=== PATIENT | male | born 1945 | race Caucasian/White ===

== ENCOUNTER → 2016-10-04 | Outpatient (CLI) | payer OTHER ==
[~2016-10-04] VITALS: Ht 177.8 cm; Wt 68.0 kg
[~2016-10-04] MED LIST: ASPIR 8181 MG PO; AZILECT1 MG PO; BENAZEPRIL HCL40 MG PO; BUTRANS1 EAC1 TD; CARAFATE1 GM PO; CARVEDILOL12.5 MG PO; EXELON1 EAC1 TD; FENTANYL PA12 MCG/HR TP; FISH OIL 1,001000 M2 PO; FLOMAX0.4 MG PO; LEVOTHYROXIN0.112 M1 PO; METFORMIN HCL500 MG PO; NABUMETONE 500500 M1 PO; NEURONTIN 300300 M1 PO; PANTOPRAZOLE SO40 M1 PO; PERCOCET PO; PRAVACHOL40 MG PO; VITAMIN B-12500 MCG PO; VITAMIN D1000 UNI1 PO; VITAMIN E400 UNIT PO; ZOLOFT 50 MG TA50 M1 PO
--- NOTE | ~2016-10-04 | HPC ---
[facility] [address] [place] [address] PAIN MANAGEMENT CONSULTATION Name: RIAN MATUTE Room #: REG MATTHEW Dutta.#: [id number] Admission: 10/04/16 Attend Phys: Dominic Teixeira DO Discharge: Date of : 43 Report #: [id number] THIS REPORT FOR: //name// CC: Dominic Sellers DATE OF SERVICE: 10/04/2016 REFERRING PHYSICIAN: Shady Rey MD CHIEF COMPLAINT: Right neck pain and right shoulder pain. HISTORY OF PRESENT ILLNESS: As you know, the patient is a 71-year-old male referred to our service by his neurosurgery team for evaluation for suspected cervical spinal stenosis. The patient reports pain today level of 8/10, states his pain is periodic, intermittent, transient, but is quite frequent in its presentation, states the pain is burning, shooting, sharp and stabbing, places current pain score at 8/10, daily average at 8-9/10, worst pain has been is 10/10. The patient states heavy lifting, walking, turning his head exacerbate symptoms, rest and inactivity improves the pain. The patient states he has been with another pain service at the [facility] when requests for cervical nerve root blocks were requested, he was advised this is too dangerous of a process and that very few physicians offer these injections due to the complication rate. He has undergone trigger point injections RFA of the C4-6 level on the right side without improvement. Cervical epidural injections were ineffective, apparently they "had difficulty getting the needle in position." The patient was then referred to our service by neurosurgery for evaluation for cervical radicular symptoms. PAST MEDICAL HISTORY: 1. Diabetes mellitus type 2. 2. Hypertension. 3. Coronary artery disease. 4. Hypothyroidism. 5. Gastroesophageal reflux disease. 6. Emotional problems. 7. Degenerative joint disease. 8. Osteoarthritis. 9. Peptic ulcer disease. PAST SURGICAL HISTORY: 1. Umbilical herniorrhaphy. 2. Left inguinal herniorrhaphy. 3. Coronary artery bypass grafting with PFO closure. [facility] [address] [place] [address] PAIN MANAGEMENT CONSULTATION Name: RIAN MATUTE Room #: REG MATTHEW Dutta.#: [id number] Admission: 10/04/16 Attend Phys: Dominic Teixeira DO Discharge: Date of : 43 Report #: [id number] 4. Permanent pacemaker implantation. 5. Lumbar laminectomy. 6. Cervical spinal surgery. 7. Right shoulder surgery. 8. Left shoulder surgery. SOCIAL HISTORY: The patient denies tobacco, IV or illicit drug use, admits to one alcoholic beverage per week. He is retired. He is not working, not receiving workmen's compensation nor is he trying to obtain disability benefits. Not in litigation in regards to pain. REVIEW OF SYSTEMS: Positive for night sweats, fatigue, and weakness, frequent and recurrent headaches, wearing corrective eyewear, changes in bowel movements with constipation, abdominal pain, frequent urination, nocturia, incontinence and dribbling to urine, lightheadedness and dizziness, memory loss with confusion, nervousness, depression, thyroid disease, non-insulin dependent diabetes, heat and cold intolerance, slow to heal after cuts, bleeding and bruising tendencies, generalized osteoarthritis. All other review of systems negative per 12-point review of systems other than those listed in history of present illness. PAIN IMPACT SCORE: 56/70 indicating severe interference of daily activities secondary to pain. ALLERGIES: SULFA. CURRENT MEDICATIONS: Oxycodone 5/325 one tab 3 times a day, omega-3 fish oil 1 tab per day, vitamin E 400 units per day, cholecalciferol 1000 units per day, cyanocobalamin 500 mcg per day, aspirin 81 mg per day, Carafate 1 gram 3 times a day, sertraline 50 mg once a day, tamsulosin 0.4 mg once a day, pravastatin 40 mg per day, pantoprazole 40 mg per day, metformin 500 mg once a day, levothyroxine 112 mcg per day, gabapentin 300 mg 3 times a day, Exelon 1 patch applied per day, carvedilol 12.5 mg twice a day, benazepril 40 mg per day, and Azilect 1 mg per day. 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 PHYSICAL EXAMINATION: VITAL SIGNS: Blood pressure 158/81, pulse is 72, respiratory rate 14 and unlabored, the patient is 99% on room air, height 5 feet 10 inches tall, weight 150 pounds, and BMI calculated 21.5. GENERAL: Thin 71-year-old male appears his stated age. He is placing current pain score at approximately 8/10. [address] [address] PAIN MANAGEMENT CONSULTATION Name: RIAN MATUTE Room #: REG MATTHEW Bentley#: [id number] Admission: 10/04/16 Attend Phys: Dominic Teixeira DO Discharge: Date of : 43 Report #: [id number] HEENT: Normocephalic, atraumatic. Pupils are equal, round, and reactive to light. Extraocular muscles are intact. Sclerae are nonicteric without injection. NEUROLOGIC: Cranial nerves 2-12 are grossly intact. Speech is fluent. The patient deemed an excellent historian. LUNGS: Clear. No wheezing, rhonchi, or rales. CARDIOVASCULAR: Regular. No appreciable gallop or rub. ABDOMEN: Soft, nontender, nondistended, normoactive bowel sounds. EXTREMITIES: Show no clubbing, no cyanosis, and no edema. MUSCULOSKELETAL: Severe limited range of motion of the cervical spine. Pain is elicited with maneuvers provocation including forward flexion, lateral flexion, rotation and extension. There is noted crepitus with each movement. Spurling's test is negative. Upper extremity strength appears equal and symmetrical 5/5, intact to light touch from C5 through T1 dermatomes. Deep tendon reflexes are diminished, but symmetrical. Muscle bulk and tone equal and symmetrical. ASSESSMENT: 1. Chronic cervical radiculopathy. 2. Cervical spinal stenosis. 3. Severe facet arthropathy of the cervical spine. 4. Chronic intractable pain. PLAN: 1. The patient has been referred to our service with requests to undergo blocks at C4-C5 and C5-C6 to address cervical nerve roots. I advised the patient at this time that these are diagnostic procedures only, they come with a very high risk of injection into the vertebral artery, which is very close in proximity anatomically to the nerve roots themselves. When we discussed this with the patient, he chose not to continue with this option of treatment. The patient decided that at this point he would rather trial medication therapies than to undergo a diagnostic block that may cause severe and irreparable damage as a possible side effect. The patient and I did discuss that there are very few physicians remaining that would attempt these type of blocks given the proximity of the vertebral artery to the foramen in the cervical region. I would recommend that the patient consider other options as well as this is an extremely precarious area to place a needle and is typically not provided for diagnostic purposes. We discussed this with the patient today and he is in agreement. He does not wish to trial this diagnostic block. 2. I did recommend to the patient the possibility of making some changes in medication therapy, given the progression of his ankylosing in the cervical spine, I believe the treatment options would have to include medication therapy and possible surgical fusion. He will need to discuss fusion with his surgeons, but medication management can be initiated through our services. We will begin the patient on the following medications to help with pain control. 3. The patient will discontinue all nonsteroidal anti-inflammatories, in place we will use nabumetone 500 mg dose 1 tab p.o. t.i.d., I have given the patient [address] [address] PAIN MANAGEMENT CONSULTATION Name: RIAN MATUTE Room #: REG CLPepe M.Adri.#: [id number] Admission: 10/04/16 Attend Phys: Dominic Teixeira DO Discharge: Date of : 43 Report #: [id number] #90 tablets with no refills, this is a trial of medication. The patient will initiate this therapy and watch for side effects such as dyspepsia, worsening of blood pressure, lower extremity edema. If he notes any side effects, contact our clinic after discontinuing the medication. 4. We will start the patient on a baseline medication in the form of fentanyl 12 mcg patch 1 patch q.72 hours. I have given the patient a prescription of fentanyl to provide baseline pain control, we will confirm its effects at the followup visit 2-3 weeks from today. This has been started for baseline pain control to provide the patient with 24-hour coverage, so he does not have to rely on immediate release medication consistently. If this is ineffective, we could consider a Butrans patch reducing the potential side effects and potentially providing better analgesia, we can consider this at followup visit depending on efficacy with fentanyl. 5. We will see the patient back in followup visit approximately 2 weeks to 3 weeks. At that time, we will review the medication management and discuss any other treatment options. The patient does indicate he will be returning to see his neurosurgeon soon and they will discuss his further treatment. 6. We wish to thank Dr. Rey and his team for the referral of this patient to our clinic. We will keep you apprised of his response to treatment as we address his cervical facet arthropathy and neck pain. Again, we wish to thank you for the opportunity to participate in his care. <ELECTRONICALLY SIGNED> By: Dominic Teixeira DO 10/11/16 1602 [id number] 1200 Dominic Teixeira DO /nt
[2016-10-04 10:27] VITALS: BP 158/81
== END | disposition home or self-care (01) ==
LOC: PAIN 07:01
DX: M54.12 Radiculopathy, cervical region (principal); M48.02 Spinal stenosis, cervical region; G89.29 Other chronic pain; I10 Essential (primary) hypertension; E11.9 Type 2 diabetes mellitus without complications; I25.10 Atherosclerotic heart disease of native coronary artery without angina pectoris; E03.9 Hypothyroidism, unspecified; K21.9 Gastro-esophageal reflux disease without esophagitis; M19.90 Unspecified osteoarthritis, unspecified site; M20.20 Hallux rigidus, unspecified foot; K27.9 Peptic ulcer, site unspecified, unspecified as acute or chronic, without hemorrhage or perforation

== ENCOUNTER → 2016-10-25 | Outpatient (CLI) | payer OTHER ==
[~2016-10-25] VITALS: Ht 177.8 cm; Wt 66.8 kg
[~2016-10-25] MED LIST changes: +FENTANYL PA25 MCG/HR TRANSDERM; +GABAPENTIN PO
--- NOTE | ~2016-10-25 | HPC ---
[facility] [place] [address] [address] [place] [address] PAIN MANAGEMENT CONSULTATION Name: RIAN MATUTE Room #: REG MATTHEW Luzmaria.#: [id number] Admission: 10/25/16 Attend Phys: Dominic Teixeira DO Discharge: Date of : 43 Report #: [id number] THIS REPORT FOR: //name// CC: NABEEL Sellers DATE OF SERVICE: 10/25/2016 DATE OF SERVICE: 10/25/2016 CHIEF COMPLAINT: Neck pain, right shoulder pain. HISTORY OF PRESENT ILLNESS: As you know, patient is a 71-year-old male referred to our service by his neurosurgery team for evaluation for suspected cervical stenosis. The patient was seen in consultation for 10/04/2016, started on medication therapy to address the severe facet arthropathy of cervical spine, cervical spinal stenosis and cervical radiculopathy. We started the patient on a very low dose of opioids with plans to increase the dose if necessary. He returns today in followup visit reporting pain scores, burning, shooting, sharp and tender, places current pain score at 3-4/10, heavy lifting, turning his head and activities tends to exacerbate his symptoms. He returns today in followup visit, denying any side effects to medication, wishes to make changes in therapy in hopes of improving pain. ALLERGIES: SULFA. CURRENT MEDICATIONS: Gabapentin 400 mg 3 times a day, fentanyl 12 mcg q. 72 hours, nabumetone 500 mg 3 times a day, docusate sodium 1 tab per day, vitamin E 400 units per day, cholecalciferol 1000 units per day, aspirin 81 mg per day, Carafate 1 gram 3 times a day, sertraline 50 mg once a day, tamsulosin 0.4 mg once a day, pravastatin 40 mg per day, pantoprazole 40 mg per day, metformin 500 mg twice a day, levothyroxine 112 mcg per day, Exelon 1 patch transdermal per day, carvedilol 12.5 mg twice a day, benazepril 40 mg per day and Azilect 1 mg per day. SOCIAL HISTORY: The patient denies tobacco use. Denies IV or illicit drug use. Admits to one alcoholic beverage per week. He is accompanied by his , who is present in room today. IMAGING: No new imaging available. PHYSICAL EXAMINATION: VITAL SIGNS: Blood pressure 119/59, pulse 73, respiratory rate 14, unlabored. The patient is 96% on room air. Height 5 feet 10 inches tall, weight 147.2 pounds, BMI calculated 21.1. [place] [address] PAIN MANAGEMENT CONSULTATION Name: RIAN MATUTE Room #: REG [facility] Mc#: [id number] Admission: 10/25/16 Attend Phys: Dominic Teixeira DO Discharge: Date of : 43 Report #: [id number] GENERAL: Well developed, well nourished, well hydrated 71-year-old male appearing his stated age. He is in moderate distress secondary to pain, placing current pain score 3-4/10. HEENT: Normocephalic, atraumatic. Pupils equal, round, reactive to light. Extraocular muscles are intact. Sclerae nonicteric without injection. NEUROLOGIC: Cranial nerves 2-12 grossly intact. Speech is fluent. EXTREMITIES: Show no clubbing, no cyanosis, no edema. MUSCULOSKELETAL: The patient has palpatory tenderness over the paraspinal musculature of the cervical spine, severe limitation of cervical rotation, flexion or extension. Pain is elicited with all maneuvers. Spurling's test is negative. ASSESSMENT: 1. Chronic cervical radiculopathy. 2. Cervical spondylosis with radicular symptoms. 3. Severe facet arthropathy of the cervical spine. 4. Chronic intractable pain. PLAN: 1. The patient has returned today in followup visit with continued neck pain with chronic cervical radicular component. The patient and I did discuss possibility of moving medications further to address ongoing pain. He has noted no side effects with the medication, but also has noted no significant improvement in his pain. Would recommend an increase in the fentanyl in hopes of improving pain. If this is ineffective, we would look towards oral tablet therapy. We had determined that the patient would need some long-acting medication, most convenient of these typically is the fentanyl patch for which the patient receives continual coverage. We will escalate the dose today. Review the patient's case in 2 weeks. We are hopeful he will see improvement in symptoms with this escalation with low side effects. 2. The patient was provided a prescription of fentanyl 25 mcg patch 1 patch every 3 days. I have given him 1 pack of 5 patches 2 weeks' worth of medication. 3. The patient will continue nabumetone therapy. He has enough to make our next visit. We will adjust medications at followup. By: [id number] Dominic Teixeira DO /nt
[2016-10-25 10:17] VITALS: BP 119/59
== END ==
LOC: PAIN 07:05
DX: M47.12 Other spondylosis with myelopathy, cervical region (principal); M48.02 Spinal stenosis, cervical region; I10 Essential (primary) hypertension; F32.9 Major depressive disorder, single episode, unspecified; Z79.82 Long term (current) use of aspirin

== ENCOUNTER → 2016-11-08 | Outpatient (CLI) | payer OTHER ==
[~2016-11-08] VITALS: Ht 172.7 cm; Wt 66.6 kg
[~2016-11-08] MED LIST changes: +HYSINGLA ER30 MG PO; +MS CONTIN15 MG PO
--- NOTE | ~2016-11-08 | HPC ---
[facility] [address] [place] [address] PAIN MANAGEMENT CONSULTATION Name: RIAN MATUTE Room #: REG MATTHEW Luzmaria.#: [id number] Admission: 11/08/16 Attend Phys: Dominic Teixeira DO Discharge: Date of : 43 Report #: [id number] THIS REPORT FOR: //name// CC: NABEEL Sellers DATE OF SERVICE: 11/08/2016 REFERRING PHYSICIAN: Nabeel Rey M.D. CHIEF COMPLAINT: Neck pain. HISTORY OF PRESENT ILLNESS: As you know, the patient is a very pleasant 71-year-old male referred to our service by his neurosurgery team for evaluation for suspected cervical stenosis and severe cervical spondylosis. He was seen in consultation 10/04/2016, started on medication management to address severe facet arthropathy of the cervical spine. He also suffers from cervical spinal stenosis, which is progressively worsening causing chronic cervical radiculopathy. The patient returns today after being increased on his fentanyl from 12 mcg patch to 25 mcg patch. He states he was somewhat dysphoric with the fentanyl and removed the patch nearly 3 days ago, but remains dysphoric. He returns to discuss options for treatment as he is not sure the fentanyl was providing the benefit he wished. ALLERGIES: SULFA. CURRENT MEDICATIONS: Gabapentin 400 mg 3 times a day, nabumetone 500 mg 3 times a day, omega-3 fish oil 1 tab per day, vitamin E 400 units per day, cholecalciferol 1000 units per day, cyanocobalamin 500 mcg per day, aspirin 81 mg per day, Carafate 1 gram 4 times a day, sertraline 50 mg per day, tamsulosin 0.4 mg once a day, pravastatin 40 mg per day, pantoprazole 40 mg per day, metformin 500 mg once a day, levothyroxine 112 mcg per day, Exelon 1 patch per day, carvedilol 12.5 mg twice a day, benazepril 40 mg per day, Azilect 1 mg per day. SOCIAL HISTORY: The patient denies tobacco use. Denies IV or illicit drug use. Admits to one alcoholic beverage per week. He is accompanied by his who is present in the room today. IMAGING: No new imaging available. PHYSICAL EXAMINATION: VITAL SIGNS: Blood pressure 143/70, pulse 75, respiratory rate 14, unlabored. The patient is 98% on room air, height 5 feet 8 inches tall, weight 146.8 pounds, BMI calculated 22.3. [facility] [address] [place] [address] PAIN MANAGEMENT CONSULTATION Name: RIAN MATUTE Room #: REG CLI [facility].#: [id number] Admission: 11/08/16 Attend Phys: Dominic Teixeira DO Discharge: Date of : 43 Report #: [id number] GENERAL: Well developed, well nourished, well hydrated, thin, 71-year-old male appearing his stated age, is placing pain score around 4/10. HEENT: Normocephalic, atraumatic. Pupils equal, round, reactive to light. Extraocular muscles are intact. NEUROLOGIC: Speech fluent. The patient deemed a good historian. LUNGS: Clear, no wheeze, rhonchi or rales. CARDIOVASCULAR: Regular. No appreciable gallop or rub. ABDOMEN: Soft, nontender, nondistended. EXTREMITIES: Showed no clubbing, no cyanosis, no edema. MUSCULOSKELETAL: There is severe restriction of motion to the cervical spine, severe limitation to rotation to the right lateral flexion to the right. Pain is elicited with all maneuvers. Spurling's test negative. ASSESSMENT: 1. Chronic cervical radiculopathy. 2. Cervical spinal stenosis. 3. Cervical spondylosis with radicular symptoms. 4. Severe facet arthropathy of the cervical spine. 5. Chronic intractable pain. PLAN: 1. The patient has returned today in followup visit where we have discussed the effects of the fentanyl. The patient indicates that this has greatly reduced his "flashes" of pain. The patient does feel that the medication was controlling a portion of his symptoms, but was not providing him 100% pain relief. I discussed with the patient, there is no possibility that we will find a medication that will have no side effects, but provide 100% improvement in pain. We discussed with the patient today pain management is attempting to reach a tolerable level of symptoms. We are trying to do so with the lowest amount of side effects. The patient and I did discuss that he has taken off the fentanyl patch about 3 days ago, but continues to experience some dysphoric effects such as sleepiness, disorientation and the feeling of "being zoned out." I have advised the patient at this time that the fentanyl is not the source of this condition as the half-life fentanyl have exceeded the timeframe, the patient has been experiencing this dysphoric effects. The dysphoria must be due to another source. Certainly, the fentanyl may have exacerbated symptoms while he was on it, but now the medication has dissipated and the effects of this medication has ceased. There is no possible way the symptoms he is experiencing at this time are due to the fentanyl patch. The patient is unwilling to restart the fentanyl patch, even though he was noticing good improvement in his "flashes" of pain. 2. The patient and I did discuss the possibility of starting on a long-acting hydrocodone formula in the form of Hysingla ER. We have agreed to provide the patient with a prescription of the Hysingla ER 30 mg dose equivalent of 6 hydrocodone 5/325 per day. He is to take this once in the morning. This will give him 24-hour coverage. It is a convenient way to provide this medication [address] [place] [address] PAIN MANAGEMENT CONSULTATION Name: RIAN MATUTE Room #: REG MATTHEW Bentley#: [id number] Admission: 11/08/16 Attend Phys: Dominic Teixeira DO Discharge: Date of : 43 Report #: [id number] with potentially less side effects. We have given the patient the prescription today, #30 with no refills. I did advise the patient if the medication is too costly he could return and exchange the medication for another form of medication. The patient will take this prescription to the pharmacy today; contact our clinic if he has difficulty filling this prescription. 3. We did discuss that if the medication provided above was too costly, we would try him on MS Contin 15 mg dose twice a day. This is typically covered by most insurances as it is generic. We would have to trial the medication to determine if it is effective when compared to the Effexor receiving with fentanyl. 4. We will see the patient back in followup visit in 1 month to discuss efficacy. We did discuss with the patient today that radiofrequency lesioning might be an option for treatment. He indicates that he has had this done at the [facility], though he does not have good recollection of this process, his is actually positive. He has undergone this procedure and received only 36 hours of improvement in pain, which would indicate that the radiofrequency did not address the medial branch nerves of the cervical spine as this would be impossible for the nerves to regenerate that quickly. We did discuss the possibility of having the patient undergo the procedure here with our clinic to confirm ablation of the medial branch nerves. He will consider his options. 5. We will discuss this further at the followup visit in 1 month. If he has any trouble with medications, he has to contact our clinic. By: [id number] Dominic Teixeira DO /nt
[2016-11-08 10:05] VITALS: BP 143/70
== END ==
LOC: PAIN 06:44
DX: M47.22 Other spondylosis with radiculopathy, cervical region (principal); G89.29 Other chronic pain; I10 Essential (primary) hypertension

== ENCOUNTER → 2016-12-06 | Outpatient (CLI) | payer OTHER ==
[~2016-12-06] VITALS: Ht 177.8 cm; Wt 66.7 kg
--- NOTE | ~2016-12-06 | HPC ---
[facility] [address] PAIN MANAGEMENT CONSULTATION Name: RIAN MATUTE Room #: REG MATTHEW Mc#: [id number] Admission: 12/06/16 Attend Phys: Dominic Teixeira DO Discharge: Date of : 41 Report #: [id number] THIS REPORT FOR: //name// CC: Dominic Sellers DATE OF SERVICE: 12/06/2016 CHIEF COMPLAINT: Neck pain. HISTORY OF PRESENT ILLNESS: As you know, the patient is a 71-year-old male who returns today in followup visit indicating improvement in symptoms with the morphine started at last visit. He returns to discuss possible changes in medication therapy and does want to once again discuss cervical facet injections. He indicates pain is at level of only about 7/10 when most intense, he has had near complete resolution of his "shocks." The patient returns today to discuss potential treatment options. ALLERGIES: SULFA. CURRENT MEDICATIONS: Azilect 1 mg once a day, benazepril 40 mg once a day, carvedilol 12.5 mg twice a day, Exelon 1 patch transdermal per day, levothyroxine 112 mcg per day, metformin 500 mg once a day, pantoprazole 40 mg per day, pravastatin 40 mg per day, tamsulosin 0.4 mg once a day, sucralfate 1 gram 4 times a day, aspirin 81 mg per day, cyanocobalamin 500 mcg per day, cholecalciferol 1000 units per day, vitamin E 400 units per day, gabapentin 400 mg 3 times a day, MS Contin 15 mg once a day. SOCIAL HISTORY: The patient denies tobacco, denies IV or illicit drug use, admits to 1 alcoholic beverage per week. He is accompanied by his who is present in room today. IMAGING: No new imaging available. PHYSICAL EXAMINATION: VITAL SIGNS: Blood pressure 123/67, pulse 75, respiratory rate 14, unlabored. The patient is 97% on room air, height 5 feet 10 inches tall, weight 147 pounds, BMI calculated 21.1. GENERAL: Well developed, well nourished, well hydrated, thin, 71-year-old male appearing stated age, placing current pain score around 7/10 at worst. HEENT: Normocephalic, atraumatic. Pupils equal, round, reactive to light. EXTREMITIES: Show no clubbing, no cyanosis, no edema. MUSCULOSKELETAL: There is severe restriction of motion of the cervical spine with extension, rotation, lateral flexion. Pain is elicited with all maneuvers. Spurling's test negative. Upper extremity strength appears equal and symmetrical. [address] [address] PAIN MANAGEMENT CONSULTATION Name: RIAN MATUTE Room #: REG MATTHEW Bentley#: [id number] Admission: 12/06/16 Attend Phys: Dominic Teixeira DO Discharge: Date of : 41 Report #: [id number] ASSESSMENT: 1. Chronic lumbar radiculopathy. 2. Cervical spinal stenosis. 3. Cervical spondylosis with radicular symptoms. 4. Severe facet arthropathy of the cervical spine. 5. Chronic intractable pain. PLAN: 1. The patient returns today in followup visit where we have discussed the efficacy of the morphine that was started at last visit. The patient states he has seen significant improvement in his pain despite the level of pain 7/10 reported today. The patient states 7/10 is reflecting his most intense time of pain. This does not reflect his daily levels. His daily levels have significantly reduced. We have discussed with the patient that we can continue the morphine, which would be an effective treatment option or we can look towards having the patient seen for radiofrequency lesioning. I did describe to the patient that radiofrequency lesioning in the cervical spine is not as highly effective, in fact complications occur with this more frequently than we see with lumbar procedures. The patient and I discussed this today. I would be more than willing to have him see my partner to undergo facet injections, possible radiofrequency lesioning, but I have indicated to the patient that the efficacy of this tends to be relatively low. The patient at this time does not wish to undergo that procedure due to his concern of complications and his concern that the efficacy of this procedure would only provide transient improvement. He is willing to make changes in medication therapy today in hopes of improving symptoms further. 2. The patient was provided refill prescription on his MS Contin 15 mg dose 1 tab p.o. b.i.d. He can take the medication twice a day, but currently, he is taking once a day; if taken twice a day, he may see better efficacy. He will watch for side effects. He was given #60 of the morphine tablets for pain control. 3. We will see the patient back in followup visit in 1 month. By: [id number] Dominic Teixeira DO /nt
[2016-12-06 10:06] VITALS: BP 123/67
== END ==
LOC: PAIN 06:33
DX: M48.06 Spinal stenosis, lumbar region (principal); M47.22 Other spondylosis with radiculopathy, cervical region; G89.29 Other chronic pain